=== PATIENT | female | born 1990 | race Caucasian/White ===

== ENCOUNTER 2025-01-18 18:31 | Emergency (ER) | payer OTHER, SELFPAY ==
[2025-01-18 18:55] VITALS: BP 127/69; PULSE 91; RESP 16; TEMP 37.1; O2SAT 100
--- NOTE | 2025-01-18 18:58 | ED.CHESTPAIN ---
HPI - Chest Pain General Chief Complaint: Chest Pain Stated Complaint: Chest Pain Time Seen by Provider: 01/18/25 19:06 Mode of arrival: ambulatory Limitations: no limitations History of Present Illness HPI narrative: 34-year-old female presents with concern for 5 day history of chest pain. She reports it is midsternal and left chest. She denies any exacerbating or relieving factors, other than taking a deep breath which does cause the pain to be worse. She denies any shortness of breath. She denies any cough or upper respiratory symptoms. She denies any injury or trauma. She denies redness, bruising, swelling, rash to the area. She denies any worsening pain with movement of her upper extremities. She reports a history of chest pain with anxiety but reports it is typically different in nature. She denies any dyspepsia, indigestion, history of GERD. She has not taken any medications for her symptoms. MD complaint: chest pain Related Data Home Medications ?Medication ?Instructions ?Recorded ?Confirmed ?Last Taken ?Type dextroamphetamine-amphetamine ER 20 mg PO DAILY 01/18/25 01/18/25 Unknown History 20 mg 24hr capsule,extend release hydroxyzine HCl 25 mg tablet 25 mg PO DAILY 01/18/25 01/18/25 Unknown History lamotrigine 100 mg tablet 100 mg PO HS 01/18/25 01/18/25 Unknown History Allergies Allergy/AdvReac Type Severity Reaction Status Date / Time No Known Allergies Allergy Verified 01/18/25 18:54 Review of Systems Review of Systems: CONSTITUTIONAL: Denies malaise, chills, sweats, or fever. EYES: Denies visual changes, redness, or discharge. ENT: Denies rhinorrhea, congestion, sinus pain, otalgia or sore throat. CARDIOVASCULAR: Reports chest pain. Denies palpitations or edema. RESPIRATORY: Denies cough or dyspnea. GASTROINTESTINAL: Denies nausea, vomiting, SKIN: Denies rash or itching, bruising, redness, swelling MUSCULOSKELETAL: Denies back pain, joint pain, or myalgia. NEUROLOGIC: Denies numbness, weakness, or headache. PSYCHIATRIC: Reports anxiety All systems reviewed & are unremarkable except as noted in HPI and below PMFSH Comments At time of signature, agree with nursing past medical, surgical, social and family history. There is no relevant family history pertinent to the presenting complaint Exam Narrative: GENERAL: Well-appearing, well-nourished, and in no acute distress. HEAD: Normocephalic, atraumatic. EYES: PERRLA, sclera clear, and EOMI. No nystagmus. ENT: Nares clear. Mucous membranes moist. NECK: Supple. No lymphadenopathy. No jugular venous distension, thyromegaly, or carotid bruits. Carotids were easily palpable bilaterally. CHEST: No respiratory distress. Clear to auscultation. No bony deformities, no asymmetry. Speaks in full sentences. HEART: Regular rate and rhythm. No murmur heard. Normal peripheral pulses. EXTREMITIES: Normal range of motion. No edema. Normal strength and sensation. SKIN: Warm, dry, no visible rash, bruising, redness, warmth. Tenderness noted to the left chest wall upon palpation NEURO: Alert and oriented x3. PSYCH: Normal mood and affect Course Course Emergency Course: Patient is aware of diagnosis, understands and agrees to treatment plan. Anticipatory guidance given. Patient agrees to follow-up as directed and is aware of reasons to seek care at the emergency department. Portions of this record may have been created with voice recognition software Level of Care: Express Care Visit Vital Signs Vital signs: Vital Signs Temperature 98.8 F 01/18/25 18:55 Pulse Rate 91 01/18/25 18:55 Respiratory Rate 16 01/18/25 18:55 Blood Pressure 127/69 01/18/25 18:55 Pulse Oximetry 100 01/18/25 18:55 Temperature 98.8 F 01/18/25 18:55 Pulse Rate 91 01/18/25 18:55 Respiratory Rate 16 01/18/25 18:55 Blood Pressure 127/69 01/18/25 18:55 Pulse Oximetry 100 01/18/25 18:55 Reviewed. MDM - Chest Pain MDM Narrative Medical decision making narrative: I evaluated this patient in the express care. History is obtained from patient who is an independent historian and physical exam was performed.? Available medical records were reviewed. ? Exam findings and relevant testing show no acute concerns or changes; patient is non-toxic appearing and is in no distress. ? Differential diagnosis and treatment plan were discussed with the patient. Patient agrees with discussion and after shared medical decision making agrees with plan of care. All questions were answered to the patient's satisfaction. Exam findings are normal other than patient has mild tenderness to the left chest wall with palpitation. Patient's EKG is normal, vital signs normal. Symptoms are likely musculoskeletal related, patient prescribed anti-inflammatory and given referral for primary care. Patient advised to follow-up in the emergency room for symptoms worsen. Patient is appropriate for outpatient treatment and follow-up. Critical Care Time Critical Care Time Critical Care Time: No Discharge Plan Discharge Clinical Impression: Chest wall pain Patient Disposition: Home Condition: Stable Instructions: Chest Wall Pain (ED) Additional Instructions: 1) Please follow-up with your primary care doctor in the next 1-2 days. 2) If you have any worsening of symptoms or any other urgent concerns please go to the ER. 3) Please take medications as prescribed and continue taking your home medications as usual. 4) Please read and follow information included in discharge instructions. Patient Language: Mohawk Prescriptions: New ibuprofen 800 mg tablet 800 mg PO Q6H PRN (Reason: pain) Qty: 30 0RF No Action dextroamphetamine-amphetamine 20 mg capsule,extended release 24hr 20 mg PO DAILY hydroxyzine HCl 25 mg tablet 25 mg PO DAILY lamotrigine 100 mg tablet 100 mg PO HS Follow-up/Referrals: Juanita Low DO [Physician, Family Practice] PHYSICIAN,IT BUSINESS PROCESS ARCHITECT [Primary Care Provider, Internal Medicine] Stand Alone Forms: Work/School Release IP Time of Disposition: 19:31
--- NOTE | 2025-01-18 19:12 | ECG_ITS ---
Test Date: 2025-01-18 19:27:43 Measurements Intervals [place] Rate: 71 P: 48 PA: 143 QRS: 63 QRSD: 90 T: 61 QT: 368 QTc: 400 Interpretive Statements SINUS RHYTHM WITH SINUS ARRHYTHMIA INCOMPLETE RIGHT BUNDLE BRANCH BLOCK BORDERLINE ECG No previous ECG available for comparison Electronically Signed On 01-18-2025 19:43:46 CDT by All Owen D.O.
== END 2025-01-18 19:38 | disposition home or self-care (01) ==
PROVIDERS: Emergency Provider Nurse Practitioner
DX: R07.89 Other chest pain (principal)
CPT/HCPCS: 93005; 99203; G0463